=== PATIENT | female | born 1990 | race Caucasian/White ===

== ENCOUNTER 2017-06-22 02:45 | Inpatient (IN) | payer OTHER ==
[2017-06-22] VITALS (14 sets, daily range): BP systolic 103–119; BP diastolic 51–78; PULSE 86–114; RESP 12–14; TEMP 96.9–100.5; O2SAT 100
[~2017-06-22] VITALS: Ht 162.6 cm; Wt 57.3 kg
[2017-06-22] MEDS ORDERED: DIPHTH/TETANUS/ACEL PERTUSSIS (BOOSTER) 0.5 ML VIAL/PFS IM ONE (02:49)
[2017-06-22] MEDS ORDERED: ceFAZolin 2 GM PREMIX 50 ML ONE (02:49)
[2017-06-22 03:10] LABS: I-STAT POTASSIUM 3.1 MMOL/L (3.5-4.9); I-STAT SODIUM 147 MMOL/L (138-146)
[2017-06-22 03:11] LABS: HEMATOCRIT 37.1 % (35.0-46.0); MEAN CELL VOLUME 89.4 FL (80.0-100.0); MEAN CORPUSCULAR HEMOGLOBIN 29.7 PG (27.0-34.0); MEAN CORPUSCULAR HGB CONC 33.2 % (32.0-36.0); PLATELET COUNT 387 TH/MM3 (150-450); RED BLOOD COUNT 4.15 MIL/MM3 (4.00-5.30); RED CELL DISTRIBUTION WIDTH 13.5 % (11.6-17.2); WHITE BLOOD COUNT 22.5 TH/MM3 (4.0-11.0)
[2017-06-22] MEDS ORDERED: IOHEXOL 350 MG/ML 10 ML VIAL (for RAD DIAG) IVCONTRAST ONE (03:15)
[2017-06-22 03:16] LABS: HEMO FLAGS AUTO DIFF
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
[2017-06-22] MEDS ORDERED: ONDANSETRON HCL 4 MG/2 ML VIAL ONE (03:21)
[2017-06-22] MEDS ORDERED: MORPHINE SULFATE 8 MG/ML INJ ONE (03:21)
[2017-06-22 03:24] LABS: APTT (PATIENT) 22.4 SEC (24.3-30.1); INTERNATIONAL NORMALIZED RATIO 1.2 RATIO; PROTHROMBIN TIME - PATIENT 11.8 SEC (9.8-11.6)
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
[2017-06-22 03:41] LABS: BETA HCG QUANT LESS THAN 1 MIU/ML (0-5)
[2017-06-22] MEDS ORDERED: Post-op Orders (for Pharmacy) MISC XX ONE (03:45)
[2017-06-22] MEDS ORDERED: NALOXONE HCL 0.4 MG/ML AMP IV PUSH PRN (03:45)
[2017-06-22] MEDS ORDERED: SODIUM CHLORIDE 0.9% FLUSH 10 ML FLUSH IV FLUSH PRN (03:45)
[2017-06-22] MEDS ORDERED: MORPHINE SULFATE 4 MG/ML INJ IV PUSH PRN (03:45)
[2017-06-22] MEDS ORDERED: GENTAMICIN INJ 60 MG in SODIUM CHLORIDE 0.9% INJ 100 ML IV ONE (03:45)
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
[2017-06-22] MEDS ORDERED: SODIUM CHLORIDE 0.9% FLUSH 10 ML FLUSH IVF PRN (04:00)
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
[2017-06-22 04:36] LABS: POLYS (SEG NEUTROPHILS) 62 % (16-70); SCAN/DIFF FINAL DIFF MANUAL; WBC DIFF SAMPLE 100
[2017-06-22] MEDS ORDERED: metroNIDAZOLE 500 MG INJ 100 ML IV ONE (04:52)
[2017-06-22] MEDS ORDERED: GENTAMICIN 80 MG ONE (04:55)
[2017-06-22] MEDS ORDERED: METRONIDAZOLE 500 MG/100 ML ISONTONIC SOLN IV ONE (05:00)
[2017-06-22] MEDS ORDERED: PIPERACIL-TAZO 3.375 GM PREMIX 50 ML IV ONE (05:08)
[2017-06-22 05:19] LABS: BLOOD GAS BASE EXCESS -5.1 mmol/L (-2-2); BLOOD GAS CARBOXYHEMOGLOBIN 0.9 % (0-4); BLOOD GAS HCO3 20 mmol/L (22-26); BLOOD GAS METHEMOGLOBIN 1.1 % (0-2); BLOOD GAS O2 HGB SATURATION 98 % (90-100); BLOOD GAS OXYGEN CONTENT 14.4 Vol % (12.0-20.0); BLOOD GAS PCO2 37 mmHg (38-42); BLOOD GAS PO2 475 mmHg (61-120); BLOOD GAS TOTAL HGB 9.6 G/DL (12.0-16.0); CRITICAL VALUE NO; TEMP CORR TO 98.6
[2017-06-22 05:20] LABS: OXYGEN DEVICE VENT; STAT NO; VENT SETTINGS OR
[2017-06-22 05:21] LABS: MEAN CELL VOLUME 88.2 FL (80.0-100.0); MEAN CORPUSCULAR HEMOGLOBIN 29.7 PG (27.0-34.0); MEAN CORPUSCULAR HGB CONC 33.7 % (32.0-36.0); PLATELET COUNT 241 TH/MM3 (150-450); RED BLOOD COUNT 2.83 MIL/MM3 (4.00-5.30); RED CELL DISTRIBUTION WIDTH 13.3 % (11.6-17.2); REVIEW FLAG FINAL
[2017-06-22] MEDS ORDERED: PROPOFOL 500 MG/50 ML INJ 50 ML ONE (06:24)
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
[2017-06-22] MEDS ORDERED: ICU - MAGNESIUM SULFATE 4 GM/NS 100 ML IV PRN ×2 (08:15)
[2017-06-22] MEDS ORDERED: POTASSIUM CHLORIDE 25 MEQ EFFERVESCENT TAB PO PRN (08:15)
[2017-06-22] MEDS ORDERED: ICU - D/C ICU ELECTROLYTE ORDERS PRN (08:15)
[2017-06-22] MEDS ORDERED: ICU - MAGNESIUM SULFATE 2 GM/NS 100 ML IV PRN ×2 (08:15)
[2017-06-22] MEDS ORDERED: ICU - MAGNESIUM OXIDE 400 MG TAB PO PRN (08:15)
[2017-06-22] MEDS ORDERED: ICU - POTASSIUM CHLORIDE/AQUEOUS SOLN 40 MEQ/100 ML IVPB IV PRN (08:15)
[2017-06-22] MEDS ORDERED: ICU - POTASSIUM PHOSPHATE MONOBASIC 500 MG TAB PO PRN (08:15)
[2017-06-22] MEDS ORDERED: ICU - POTASSIUM PHOSPHATE 30 MMOL/NS 250 ML IV PRN ×2 (08:15)
[2017-06-22] MEDS ORDERED: ICU - POTASSIUM CHLORIDE/AQUEOUS SOLN 20 MEQ/100 ML IVPB IV PRN (08:15)
[2017-06-22] MEDS ORDERED: ICU - CALL ORDERING PHYSICIAN PRN (08:15)
[2017-06-22] MEDS ORDERED: ICU - SODIUM PHOSPHATE 30 MMOL/NS 250 ML IV PRN ×2 (08:15)
[2017-06-22] MEDS: ACETAMINOPHEN 1000 MG/100 ML 100 ML IV SCH ×3 (08:38→21:38)
[2017-06-22] MEDS: SODIUM CHLORIDE 0.9% FLUSH 10 ML FLUSH IV FLUSH SCH ×2 (08:39→20:32)
[2017-06-22] MEDS: PANTOPRAZOLE SODIUM 40 MG VIAL IV PUSH SCH (08:39)
[2017-06-22] MEDS: SODIUM CHLOR 0.9% 1000 ML INJ 1,000 ML IV SCH ×3 (08:40→23:19)
[2017-06-22] MEDS ORDERED: RESP: ALBUTEROL 2.5 MG/IPRATROPIUM 0.5 MG NEB (PRN) INH (08:45)
[2017-06-22] MEDS: fentaNYL DRIP 250 ML IV PRN ×2 (09:08→22:35)
[2017-06-22] MEDS ORDERED: CHLORHEXIDINE GLUCONATE 0.12% 15 ML CUP ONE (09:51)
[2017-06-22] MEDS ORDERED: ceFAZolin INJ 1,000 MG VIAL ONE (09:51)
[2017-06-22] MEDS ORDERED: DEXAMETHASONE SOD PHOS 4 MG/ML VIAL ONE (09:51)
[2017-06-22] MEDS ORDERED: LIDOCAINE 1%/EPINEPHrine 1:100,000 SOLN 50 ML VIAL ONE (09:51)
[2017-06-22] MEDS ORDERED: BACITRACIN TOP OINT 15 GM TUBE ONE (09:52)
[2017-06-22] MEDS ORDERED: LIDOCAINE 2%/EPINEPHrine PF 1:200,000 20ML SDV ONE (09:52)
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
[2017-06-22] MEDS: PIPERACIL-TAZO 3.375 GM PREMIX 50 ML IV SCH ×3 (11:00→22:33)
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
[2017-06-22] MEDS ORDERED: SUGAMMADEX SODIUM 200 MG/2 ML VIAL IV PUSH ONE ×2 (11:37)
[2017-06-22] MEDS ORDERED: DEXMEDETOMIDINE HCL 200 MCG/2 ML VIAL ONE (11:37)
[2017-06-22] MEDS: RESP: ALBUTEROL 2.5 MG/IPRATROPIUM 0.5 MG NEB (SCH) INH ×4 (11:41→23:22)
[2017-06-22] MEDS ORDERED: MIDAZOLAM HCL 2 MG/2 ML VIAL IV ONE (12:00)
[2017-06-22] MEDS ORDERED: PHENYLEPH/NS 1000 MCG/10 ML SYR IV ONE (12:00)
[2017-06-22] MEDS ORDERED: PROPOFOL 200 MG/20 ML AMP IV ONE (12:00)
[2017-06-22] MEDS ORDERED: SUCCINYLCHOLINE CHLORIDE 100 MG/5 ML SYRINGE IV PUSH ONE (12:00)
[2017-06-22] MEDS ORDERED: ROCURONIUM INJ 50 MG/5 ML SYRINGE IV PUSH ONE (12:00)
[2017-06-22] MEDS ORDERED: LIDOCAINE HCL 1% PF 5 ML SYRINGE OTHER ONE (12:00)
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
--- NOTE | 2017-06-22 14:22 | HHI.PR ---
Immediate Post Op Note Procedure Date: Jun 22, 2017 Pre Op Diagnosis: left mandible body fracture right subcondylar fracture left maxillary alveolus fracture complex lip/chin lacerations 3cm evulsed tooth #10 Post Op Diagnosis: brendon Surgeon: Mundo Rothman Wood Carver(s): Dr. Tres Stovall Procedure: ORIF left mandible body fracture CR right subcondylar fracture Stabilization of left maxillary alveolus fracture closure of complex lip/chin lacerations cancellous bone graft to #10 site exam under anesthesia Findings: multiple chipped teeth Complications: none Specimen(s) removed: none Estimated blood loss: 20 cc Anesthesia: General, Local (2:lidocaine wih 1:200, 000 epi 5 cc) Drains: None Patient to: ISC Patient Condition: Fair (nasally intubated) Date/Time of Procedure: SEE SURGICAL CARE RECORD Mundo Rothman DMD Jun 22, 2017 14:22
[2017-06-22] MEDS: PROPOFOL 1000 MG/100 ML INJ 100 ML IV PRN ×2 (14:47→22:35)
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
--- NOTE | 2017-06-22 15:25 | RADRPT ---
EXAM DATE/TIME: 06/22/2017 14:26 [facility] COMPARISON: No previous studies available for comparison. INDICATIONS : Abdominal pain. MEDICAL HISTORY : None. SURGICAL HISTORY : None. ENCOUNTER: Initial ACUITY: 2 days PAIN SCORE: Non-responsive. LOCATION: Bilateral abdomen. FINDINGS: Surgical suture lines in the right lower quadrant. Surgical drain in the pelvis. Air is seen in the c olon. No dilated loops of bowel. No gross free air or pneumatosis. No abnormal calcifications. Osseou s structures are intact. CONCLUSION: 1. Postsurgical features with nonobstructive bowel gas pattern. Milton Collazo MD on June 22, 2017 at 15:21 Board Certified Radiologist. This report was verified electronically.
[2017-06-22 15:59] LABS: AUTOMATED NEUTROPHIL # 15.3 TH/MM3 (1.8-7.7); HEMATOCRIT 28.3 % (35.0-46.0); HEMO FLAGS DIFF FINAL; LYMPHOCYTE # 0.3 TH/MM3 (1.0-4.8); MEAN CELL VOLUME 89.1 FL (80.0-100.0); MEAN CORPUSCULAR HEMOGLOBIN 30.4 PG (27.0-34.0); MEAN CORPUSCULAR HGB CONC 34.1 % (32.0-36.0); MONO % 2.9 % (0.0-8.0); NEUT % 95.1 % (16.0-70.0); PLATELET COUNT 251 TH/MM3 (150-450); RED BLOOD COUNT 3.17 MIL/MM3 (4.00-5.30); RED CELL DISTRIBUTION WIDTH 13.5 % (11.6-17.2); WHITE BLOOD COUNT 16.1 TH/MM3 (4.0-11.0)
[2017-06-22] MEDS: ceFAZolin 1,000 MG/NS 100 ML IV SCH ×2 (16:13)
[2017-06-22] MEDS: methylPREDNISolone SOD SUCC 125 MG/2 ML VIAL IV SCH ×2 (16:13→20:32)
[2017-06-22] MEDS: CHLORHEXIDINE 0.12% (ORAL KIT) 15 ML CUP MT SCH (20:00)
[2017-06-22] MEDS ORDERED: methylPREDNISolone ACETATE 80 MG/ML VIAL IM ONE (23:00)
[2017-06-23] VITALS (18 sets, daily range): BP systolic 97–135; BP diastolic 56–88; PULSE 85–120; RESP 12–20; TEMP 97.2–100.4; O2SAT 94–100
[2017-06-23] MEDS: ceFAZolin 1,000 MG/NS 100 ML IV SCH ×2 (00:42)
[2017-06-23] MEDS: RESP: ALBUTEROL 2.5 MG/IPRATROPIUM 0.5 MG NEB (SCH) INH ×5 (03:25→20:29)
[2017-06-23 04:07] LABS: AUTOMATED NEUTROPHIL # 14.7 TH/MM3 (1.8-7.7); BASOPHIL % 0.1 % (0.0-2.0); HEMATOCRIT 25.8 % (35.0-46.0); HEMO FLAGS DIFF FINAL; LYMPH % 8.5 % (9.0-44.0); LYMPHOCYTE # 1.4 TH/MM3 (1.0-4.8); MEAN CELL VOLUME 90.6 FL (80.0-100.0); MEAN CORPUSCULAR HEMOGLOBIN 30.8 PG (27.0-34.0); MONO % 3.5 % (0.0-8.0); NEUT % 87.9 % (16.0-70.0); PLATELET COUNT 210 TH/MM3 (150-450); RED BLOOD COUNT 2.85 MIL/MM3 (4.00-5.30); RED CELL DISTRIBUTION WIDTH 13.5 % (11.6-17.2); WHITE BLOOD COUNT 16.7 TH/MM3 (4.0-11.0)
[2017-06-23 04:34] LABS: BLOOD GAS BASE EXCESS -3.4 mmol/L (-2-2); BLOOD GAS CARBOXYHEMOGLOBIN 0.9 % (0-4); BLOOD GAS HCO3 22 mmol/L (22-26); BLOOD GAS METHEMOGLOBIN 0.9 % (0-2); BLOOD GAS O2 HGB SATURATION 98 % (90-100); BLOOD GAS OXYGEN CONTENT 12.7 Vol % (12.0-20.0); BLOOD GAS PCO2 44 mmHg (38-42); BLOOD GAS PO2 199 mmHg (61-120); BLOOD GAS TOTAL HGB 8.9 G/DL (12.0-16.0); CRITICAL VALUE NO; OXYGEN DEVICE VENTILATOR; TEMP CORR TO 98.6
[2017-06-23 04:35] LABS: DRAW SITE LT RADIAL; FIO2 40 %; NUMBER OF ARTERIAL PUNCTURES 1; STAT NO; ULNAR PULSE PRESENT
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
[2017-06-23 04:39] LABS: BICARBONATE 24.3 MEQ/L (21.0-32.0); CALCIUM-PROTEIN CORRECTED 8.4 MG/DL (8.5-10.1); MAGNESIUM 1.9 MG/DL (1.5-2.5); TOTAL BILIRUBIN ADULT 0.2 MG/DL (0.2-1.0)
[2017-06-23] MEDS: PIPERACIL-TAZO 3.375 GM PREMIX 50 ML IV SCH ×3 (05:34→16:07)
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
[2017-06-23] MEDS: PROPOFOL 1000 MG/100 ML INJ 100 ML IV PRN (06:57)
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
[2017-06-23] MEDS: CHLORHEXIDINE 0.12% (ORAL KIT) 15 ML CUP MT SCH ×2 (07:50→19:49)
[2017-06-23] MEDS: SODIUM CHLORIDE 0.9% FLUSH 10 ML FLUSH IV FLUSH SCH ×2 (09:00→19:50)
[2017-06-23] MEDS: PANTOPRAZOLE SODIUM 40 MG VIAL IV PUSH SCH (09:00)
[2017-06-23] MEDS: SODIUM CHLOR 0.9% 1000 ML INJ 1,000 ML IV SCH (09:02)
--- NOTE | 2017-06-23 09:12 | PD.OP ---
cc: Rakan Koch MD Operative Report Date of Surgery: Jun 23, 2017 Preoperative Diagnosis: Displaced right ankle medial malleolus fracture Postoperative Diagnosis: Procedure: Open reduction internal fixation right ankle medial malleolus, stress exam of syndesmosis under anesthesia Anesthesia: Gen. Surgeon: Rakan Koch Crayon Sawyer(s): CHARLI Gonsales PA-C The surgical procedure was assisted by my physician general office assistant. My P.A. presence was necessary throughout this case for the manipulation and positioning of the surgical extremity. My P.A. was assisting me throughout the duration of this procedure. The skill set of a physician general office assistant was medically necessary to complete this procedure. During the surgical case the surgical resident was working at the back table and the physician general office assistant was directly assisting me. Operation and Findings: Implants used :ITS Patient was seen and evaluated preoperatively and found to have a displaced right medial malleolus ankle fracture. Informed consent was obtained after a detailed discussion of risk and benefits of surgery. The operative site was marked. Patient was brought to the OR, placed on the OR table, and given IV sedation and general endotracheal anesthesia. IV antibiotics were given preoperatively. A timeout procedure was performed. The operative leg was prepped with alcohol followed by Hibiclens and draped in the usual sterile fashion. Attention was turned towards the medial malleolus. The medial malleolus supposed through a 3 cm incision. Saphenous vein was retracted. Fracture was visualized. Fracture was cleaned with curettes. Fracture was now reduced and keyed into anatomic alignment. K wires were used to hold provisional fixation. 2 guidepins for the 4.0 cannulated screws were placed in a retrograde fashion across the fracture. Fluoroscopy was used to confirm guidepin placement. Cannulated drill was placed over the guidepin. 2 appropriate length screws were now placed. Good compression was applied. Fluoroscopy confirmed well aligned fracture with well-placed hardware. Next, attention was turned to the syndesmosis. The syndesmosis was stressed. There was no widening of the syndesmosis with external rotation of the ankle. Incisions were thoroughly irrigated. The subcutaneous tissue was closed with 3- 0 Vicryl and the skin was closed with 3-0 nylon. Sterile dressings were applied. A well molded well-padded splint was applied. The patient was transferred to Recovery in stable condition. Needle and sponge counts were correct. Rakan Koch MD Jun 23, 2017 09:12
[2017-06-23] MEDS ORDERED: ACETAMINOPHEN/HYDROcodone 325 MG/7.5 MG TAB PO PRN (09:15)
[2017-06-23] MEDS ORDERED: Post-op Orders (for Pharmacy) MISC XX ONE (09:15)
[2017-06-23] MEDS ORDERED: DO NOT ADM ANY ANTICOAGULANT DRUGS PRN (11:00)
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
[2017-06-23] MEDS ORDERED: VANCOMYCIN HCL 1000 MG VIAL IV ONE (12:00)
[2017-06-23] MEDS ORDERED: ONDANSETRON HCL 4 MG/2 ML VIAL IV PUSH ONE (12:00)
[2017-06-23] MEDS ORDERED: LIDOCAINE HCL 1% PF 5 ML SYRINGE OTHER ONE (12:00)
[2017-06-23] MEDS ORDERED: GENTAMICIN SULFATE 80 MG/2 ML VIAL IRRIGATION ONE (12:00)
[2017-06-23] MEDS ORDERED: DEXMEDETOMIDINE HCL 200 MCG/2 ML VIAL IV ONE (12:00)
[2017-06-23] MEDS ORDERED: SODIUM CHLORIDE 0.9% 50 ML BAG IV ONE (12:00)
[2017-06-23] MEDS ORDERED: SODIUM CHLOR 0.9% 250 ML INJ 250 ML IV ONE (12:00)
[2017-06-23] MEDS ORDERED: PROPOFOL 200 MG/20 ML AMP IV ONE (12:00)
[2017-06-23] MEDS ORDERED: DEXAMETHASONE SOD PHOS 4 MG/ML VIAL IV ONE (12:00)
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
[2017-06-23] MEDS ORDERED: ceFAZolin 2 GM PREMIX 50 ML IV SCH (13:00)
--- NOTE | 2017-06-23 14:19 | RADRPT ---
EXAM DATE/TIME: 06/23/2017 08:57 [facility] COMPARISON: ANKLE RIGHT LIMITED (AP&LAT), June 22, 2017, 2:59. INDICATIONS : Right ankle fracture repair. OR. MEDICAL HISTORY : None. SURGICAL HISTORY : None. ENCOUNTER: Initial ACUITY: 1 day PAIN SCORE: Non-responsive. LOCATION: Right ankle FINDINGS: 2 spot fluoroscopic images obtained in the operating room during a procedure demonstrate placement of 2 partially threaded cannulated screws traversing the medial malleolus. There is now anatomic alignm ent. Ankle mortise is intact. CONCLUSION: Anatomic alignment of the medial malleolus fracture following ORIF. Tres Spence MD on June 23, 2017 at 14:15 Board Certified Radiologist. This report was verified electronically.
--- NOTE | 2017-06-23 15:19 | OTSOAPIP ---
TIME SESSION COMPLETED: AM TREATMENT TIME: 0 MINS. CHART REVIEWED. PT OFF FLOOR FOR SURGERY ON ANKLE THIS MORNING. WILL FOLLOW TOMORROW FOR OT EVALUATION. Therapist: ANAHY BARRETT OT/Jessica Signature on file
[2017-06-23] MEDS: CIPROFLOXACIN/HYDROCORTISONE OTIC 10 ML BTL LEFT EAR SCH (16:02)
[2017-06-23] MEDS: MORPHINE SULFATE 4 MG/ML INJ IV PUSH PRN (16:40)
[2017-06-23] MEDS: ONDANSETRON HCL 4 MG/2 ML VIAL IV PUSH PRN (17:11)
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
[2017-06-24] VITALS (7 sets, daily range): BP systolic 113–135; BP diastolic 58–89; PULSE 103–116; RESP 16–18; TEMP 96.4–98.4; O2SAT 96–100
[2017-06-24] MEDS: SODIUM CHLOR 0.9% 1000 ML INJ 1,000 ML IV SCH ×2 (00:02→08:42)
[2017-06-24] MEDS: PIPERACIL-TAZO 3.375 GM PREMIX 50 ML IV SCH ×2 (00:02→05:25)
[2017-06-24] MEDS: CIPROFLOXACIN/HYDROCORTISONE OTIC 10 ML BTL LEFT EAR SCH ×3 (00:02→21:00)
[2017-06-24] MEDS: RESP: ALBUTEROL 2.5 MG/IPRATROPIUM 0.5 MG NEB (SCH) INH ×2 (01:07→04:38)
[2017-06-24] MEDS: MORPHINE SULFATE 4 MG/ML INJ IV PUSH PRN ×3 (03:49→11:56)
[2017-06-24] MEDS: ONDANSETRON HCL 4 MG/2 ML VIAL IV PUSH PRN ×3 (03:50→15:40)
--- NOTE | 2017-06-24 06:45 | PD.ORT.PN ---
Subjective Subjective Remarks Resting comfortably. Does have concerns about a "clicking" sound over her sternoclavicular joint when taking deep breaths. Objective Vitals Vital Signs Date Time Temp Pulse Resp B/P (MAP) Pulse Ox O2 Delivery O2 Flow Rate FiO2 06/24/17 04:30 97.9 113 16 119/72 (88) 98 06/24/17 01:11 99 06/24/17 00:23 97.6 112 16 113/58 (76) 96 06/23/17 21:45 97.2 116 16 135/76 (95) 100 06/23/17 20:34 94 06/23/17 20:34 95 21 06/23/17 20:00 98.5 120 20 130/81 (97) 100 06/23/17 20:00 120 06/23/17 19:00 100 Room Air 06/23/17 18:00 112 06/23/17 16:00 94 06/23/17 16:00 98.6 100 19 129/88 (102) 98 06/23/17 14:00 94 06/23/17 12:00 99.0 95 12 98 06/23/17 12:00 95 06/23/17 11:05 98 Room Air 06/23/17 10:15 98.6 104 22 144/85 (104) 99 Room Air Arterial Line 06/23/17 10:01 100 Room Air 06/23/17 10:00 121 24 155/93 (113) 100 Room Air Arterial Line 06/23/17 09:46 100 40 06/23/17 09:45 102 18 128/84 (99) 100 Mechanical Ventilator Arterial Line 06/23/17 09:37 99.0 93 11 116/79 (91) 100 Mechanical Ventilator Automatic Cuff 06/23/17 08:30 100 100 06/23/17 08:00 99.6 94 15 107/73 (84) 100 06/23/17 08:00 92 06/23/17 08:00 50 06/23/17 07:25 100 40 06/23/17 07:00 100 Mechanical Ventilator 40 I/O 06/23/17 06/23/17 06/23/17 06/24/17 06/24/17 06/24/17 07:00 15:00 23:00 07:00 15:00 23:00 Intake Total 150 ml 550 ml Output Total 805 ml 140 ml 1075 ml Balance -655 ml 410 ml -1075 ml Intake IV Total 150 ml 100 ml Other 450 ml Output Urine Total 550 ml 120 ml 1000 ml Drainage Total 255 ml 75 ml Estimated Blood Loss 20 ml Result Diagram: 06/23/17 0345 06/23/17 0345 Imaging Last 24 hours Impressions Chest X-Ray 06/23/17 0600 Signed Impressions: Service Date/Time: Friday, June 23, 2017 04:01 - CONCLUSION: 1. Interval intubation. 2. No acute cardiopulmonary disease. 3. The known rib fractures are not visualized. There is no evidence of a pneumothorax. Adrian Henriquez MD Objective Remarks Right lower extremity: Clean dry dressings intact. Short leg splint. Intact sensation distally with active dorsiflexion plantar flexion of toes Assessment & Plan Assessment and Plan Right medial malleolus fracture ORIF POD 1 Nonweightbearing right lower extremity Maintain splint and dressings Walker training Plan for discharge to home and follow-up with Dr. Koch or PA in 2 weeks - orthopedically cleared Adrian Kessler Jr. Jun 24, 2017 06:45
[2017-06-24] MEDS ORDERED: oxyCODONE HCL ORAL CONC 5 MG/0.25 ML SYRINGE PO PRN (07:15)
[2017-06-24] MEDS ORDERED: LACTULOSE SYRUP 20 GM/30 ML CUP PO PRN (07:15)
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
[2017-06-24] MEDS: POLYETHYLENE GLYCOL 17 GM PKG PO SCH (08:42)
[2017-06-24] MEDS: SENNOSIDES SYRUP 8.8 MG/5 ML CUP PO SCH ×2 (09:00→21:00)
[2017-06-24] MEDS: SODIUM CHLORIDE 0.9% FLUSH 10 ML FLUSH IV FLUSH SCH ×2 (09:00→21:00)
[2017-06-24] MEDS: PANTOPRAZOLE SODIUM 40 MG VIAL IV PUSH SCH (09:00)
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
[2017-06-24] MEDS: METHOCARBAMOL IV SCH ×2 (10:08→15:38)
[2017-06-24] MEDS: SODIUM CHLOR 0.9% IV SCH ×2 (10:08→15:38)
[2017-06-24 10:25] LABS: AUTOMATED NEUTROPHIL # 5.5 TH/MM3 (1.8-7.7); BASOPHIL # 0.1 TH/MM3 (0-0.2); BASOPHIL % 1.1 % (0.0-2.0); EOSINOPHIL # 0.2 TH/MM3 (0-0.4); HEMATOCRIT 33.3 % (35.0-46.0); HEMO FLAGS DIFF FINAL; LYMPH % 21.1 % (9.0-44.0); LYMPHOCYTE # 1.7 TH/MM3 (1.0-4.8); MEAN CELL VOLUME 90.6 FL (80.0-100.0); MEAN CORPUSCULAR HEMOGLOBIN 30.6 PG (27.0-34.0); MEAN CORPUSCULAR HGB CONC 33.8 % (32.0-36.0); MONO % 5.5 % (0.0-8.0); NEUT % 70.3 % (16.0-70.0); PLATELET COUNT 186 TH/MM3 (150-450); RED BLOOD COUNT 3.68 MIL/MM3 (4.00-5.30); RED CELL DISTRIBUTION WIDTH 14.8 % (11.6-17.2); WHITE BLOOD COUNT 7.8 TH/MM3 (4.0-11.0)
[2017-06-24 11:08] LABS: ALKALINE PHOSPHATASE 93 U/L (45-117); ALT (GPT) 11 U/L (10-53); ANION GAP 8 MEQ/L (5-15); AST (GOT) 11 U/L (15-37); BICARBONATE 26.6 MEQ/L (21.0-32.0); BLOOD UREA NITROGEN 6 MG/DL (7-18); CHLORIDE 108 MEQ/L (98-107); GLOMERULAR FILTRATION RATE 68 ML/MIN (>89); MAGNESIUM 1.9 MG/DL (1.5-2.5); SODIUM (NA) 143 MEQ/L (136-145); TOTAL BILIRUBIN ADULT 0.3 MG/DL (0.2-1.0)
[2017-06-24 11:19] LABS: POTASSIUM 2.9 MEQ/L (3.5-5.1)
[2017-06-24] MEDS ORDERED: POTASSIUM CHLORIDE 25 MEQ EFFERVESCENT TAB PO ONE (11:30)
[2017-06-24] MEDS ORDERED: POTASSIUM CHLOR 20 MEQ PREMIX 100 ML IV ONE (11:30)
[2017-06-24] MEDS: CHLORHEXIDINE GLUCONATE 0.12% 15 ML CUP SWISH-SPIT SCH ×3 (11:57→18:00)
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
[2017-06-24] MEDS: ENOXAPARIN SODIUM 40 MG/0.4 ML SYRINGE SQ SCH (14:27)
[2017-06-24] MEDS: oxyCODONE HCL ORAL CONC 5 MG/0.25 ML SYRINGE PO PRN ×2 (15:40→20:06)
--- NOTE | 2017-06-24 17:16 | HHI.PR ---
Subjective Remarks POD 2 s/p ORIF/CR B/L mandible fracture; stabilization of maxillary alveolus fracture closure of complex lip/chin lacerations, bone graft #10 socket pt seen this am, mother/family bedside transferred to regular room following commands, talking reports wire causing her discomfort right maxillary lip region Objective Vital Signs Date Time Temp Pulse Resp B/P (MAP) Pulse Ox O2 Delivery O2 Flow Rate FiO2 06/24/17 16:00 97.2 110 18 135/89 (104) 100 06/24/17 12:00 96.9 103 18 121/88 (99) 100 06/24/17 08:00 96.4 116 18 128/79 (95) 100 06/24/17 04:30 97.9 113 16 119/72 (88) 98 06/24/17 01:11 99 06/24/17 00:23 97.6 112 16 113/58 (76) 96 06/23/17 21:45 97.2 116 16 135/76 (95) 100 06/23/17 20:34 94 06/23/17 20:34 95 21 06/23/17 20:00 98.5 120 20 130/81 (97) 100 06/23/17 20:00 120 06/23/17 19:00 100 Room Air 06/23/17 18:00 112 I/O 06/23/17 06/23/17 06/23/17 06/24/17 06/24/17 06/24/17 07:00 15:00 23:00 07:00 15:00 23:00 Intake Total 150 ml 550 ml 0 ml 240 ml Output Total 805 ml 140 ml 1075 ml 830 ml 50 ml Balance -655 ml 410 ml -1075 ml -830 ml 190 ml Intake Oral 0 ml 240 ml IV Total 150 ml 100 ml Other 450 ml Output Urine Total 550 ml 120 ml 1000 ml 800 ml Drainage Total 255 ml 75 ml 30 ml 50 ml Estimated Blood Loss 20 ml # Voids 5 # Bowel Movements 0 0 Result Diagram: 06/24/17 1000 06/24/17 1000 Objective Remarks mild facial edema chin dressing in place + sensation to lower lip, especially left side intraorally, tissues pink/well perfused all wound margins well approximated, sutures intact, hemostatic arch bars/wires in place, hemostatic, bite in occlusion, #10 site stable wire cutters noted in room wire causing irritation right maxillary lip Assessment and Plan Assessment and Plan POD 2 s/p ORIF/CR B/L mandible fracture; stabilization of maxillary alveolus fracture closure of complex lip/chin lacerations, bone graft #10 socket progressing well from oms standpoint continue supportive care wire cutters with pt. placed ortho wax to right maxillary wires ohi reinforced Mundo Rothman DMD Jun 24, 2017 17:16
[2017-06-25] VITALS (8 sets, daily range): BP systolic 121–134; BP diastolic 76–87; PULSE 90–97; RESP 16–18; TEMP 96.2–98.2; O2SAT 98–99
[2017-06-25] MEDS: METHOCARBAMOL IV SCH ×3 (02:01→17:26)
[2017-06-25] MEDS: SODIUM CHLOR 0.9% IV SCH ×3 (02:01→17:26)
[2017-06-25 05:35] LABS: AUTOMATED NEUTROPHIL # 9.3 TH/MM3 (1.8-7.7); BASOPHIL % 0.2 % (0.0-2.0); EOSINOPHIL % 0.1 % (0.0-4.0); HEMATOCRIT 26.8 % (35.0-46.0); HEMO FLAGS DIFF FINAL; LYMPH % 13.2 % (9.0-44.0); LYMPHOCYTE # 1.5 TH/MM3 (1.0-4.8); MEAN CELL VOLUME 88.7 FL (80.0-100.0); MEAN CORPUSCULAR HEMOGLOBIN 29.9 PG (27.0-34.0); MEAN CORPUSCULAR HGB CONC 33.7 % (32.0-36.0); MONO % 4.7 % (0.0-8.0); NEUT % 81.8 % (16.0-70.0); PLATELET COUNT 223 TH/MM3 (150-450); RED BLOOD COUNT 3.03 MIL/MM3 (4.00-5.30); RED CELL DISTRIBUTION WIDTH 13.4 % (11.6-17.2); WHITE BLOOD COUNT 11.4 TH/MM3 (4.0-11.0)
[2017-06-25] MEDS: oxyCODONE HCL ORAL CONC 5 MG/0.25 ML SYRINGE PO PRN ×4 (05:58→21:39)
[2017-06-25 06:10] LABS: ALKALINE PHOSPHATASE 65 U/L (45-117); ALT (GPT) 19 U/L (10-53); ANION GAP 8 MEQ/L (5-15); AST (GOT) 21 U/L (15-37); BICARBONATE 26.8 MEQ/L (21.0-32.0); BLOOD UREA NITROGEN 6 MG/DL (7-18); CHLORIDE 103 MEQ/L (98-107); GLOMERULAR FILTRATION RATE 261 ML/MIN (>89); POTASSIUM 3.6 MEQ/L (3.5-5.1); SODIUM (NA) 138 MEQ/L (136-145); TOTAL BILIRUBIN ADULT 0.6 MG/DL (0.2-1.0)
--- NOTE | 2017-06-25 07:07 | PD.ORT.PN ---
Subjective Subjective Remarks POD 2 s/p ORIF right medial malleolus doing well. reports pain but controlled Objective Vitals Vital Signs Date Time Temp Pulse Resp B/P (MAP) Pulse Ox O2 Delivery O2 Flow Rate FiO2 06/25/17 04:00 98.2 92 17 128/79 (95) 98 06/25/17 00:00 97.9 95 17 129/79 (96) 98 06/24/17 20:00 98.4 109 17 132/74 (93) 99 06/24/17 16:00 97.2 110 18 135/89 (104) 100 06/24/17 12:00 96.9 103 18 121/88 (99) 100 06/24/17 08:00 96.4 116 18 128/79 (95) 100 I/O 06/24/17 06/24/17 06/24/17 06/25/17 06/25/17 06/25/17 07:00 15:00 23:00 07:00 15:00 23:00 Intake Total 0 ml 240 ml 420 ml 240 ml Output Total 830 ml 50 ml Balance -830 ml 190 ml 420 ml 240 ml Intake Oral 0 ml 240 ml 420 ml 240 ml Output Urine Total 800 ml Drainage Total 30 ml 50 ml # Voids 5 2 2 # Bowel Movements 0 0 0 0 Result Diagram: 06/25/17 0515 06/25/17 0515 Imaging Last 24 hours Impressions Chest X-Ray 06/23/17 0600 Signed Impressions: Service Date/Time: Friday, June 23, 2017 04:01 - CONCLUSION: 1. Interval intubation. 2. No acute cardiopulmonary disease. 3. The known rib fractures are not visualized. There is no evidence of a pneumothorax. Adrian Henriquez MD Objective Remarks Right lower extremity: Clean dry dressings intact. Short leg splint. Intact sensation distally with active dorsiflexion plantar flexion of toes Assessment & Plan Assessment and Plan 1) Right medial malleolus fracture ORIF - POD 2 Nonweightbearing right lower extremity Maintain splint and dressings Walker training Plan for discharge to home and follow-up with Dr. Koch or PA in 2 weeks - orthopedically cleared Edmund Gomes/Pharmacist Helper RADHA Jun 25, 2017 07:07
[2017-06-25] MEDS ORDERED: WALKER/ADULT/FO1 MIS (07:08)
[2017-06-25] MEDS: SODIUM CHLORIDE 0.9% FLUSH 10 ML FLUSH IV FLUSH SCH ×2 (09:00→21:38)
[2017-06-25] MEDS: CIPROFLOXACIN/HYDROCORTISONE OTIC 10 ML BTL LEFT EAR SCH ×2 (09:00→21:33)
[2017-06-25] MEDS: SENNOSIDES SYRUP 8.8 MG/5 ML CUP PO SCH ×2 (09:14→21:40)
[2017-06-25] MEDS: PANTOPRAZOLE SODIUM 40 MG VIAL IV PUSH SCH (09:14)
[2017-06-25] MEDS: POLYETHYLENE GLYCOL 17 GM PKG PO SCH (09:14)
[2017-06-25] MEDS: CHLORHEXIDINE GLUCONATE 0.12% 15 ML CUP SWISH-SPIT SCH ×3 (09:14→17:26)
[2017-06-25] MEDS: SODIUM CHLOR 0.9% 1000 ML INJ 1,000 ML IV SCH (09:22)
[2017-06-25] MEDS: ENOXAPARIN SODIUM 40 MG/0.4 ML SYRINGE SQ SCH (12:32)
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
--- NOTE | 2017-06-25 12:53 | HHI.PR ---
Subjective Remarks POD 3 s/p ORIF/CR B/L mandible fracture; stabilization of maxillary alveolus fracture closure of complex lip/chin lacerations, bone graft #10 socket pt seen this am, mother/family bedside following commands, talking no complaints Objective Vital Signs Date Time Temp Pulse Resp B/P (MAP) Pulse Ox O2 Delivery O2 Flow Rate FiO2 06/25/17 12:00 97.7 93 17 134/87 (103) 99 06/25/17 08:00 96.2 90 18 122/77 (92) 99 06/25/17 04:00 98.2 92 17 128/79 (95) 98 06/25/17 00:00 97.9 95 17 129/79 (96) 98 06/24/17 20:00 98.4 109 17 132/74 (93) 99 06/24/17 16:00 97.2 110 18 135/89 (104) 100 I/O 06/24/17 06/24/17 06/24/17 06/25/17 06/25/17 06/25/17 07:00 15:00 23:00 07:00 15:00 23:00 Intake Total 0 ml 240 ml 420 ml 240 ml Output Total 830 ml 50 ml 15 ml 20 ml Balance -830 ml 190 ml 405 ml 220 ml Intake Oral 0 ml 240 ml 420 ml 240 ml Output Urine Total 800 ml Drainage Total 30 ml 50 ml 15 ml 20 ml # Voids 5 2 2 # Bowel Movements 0 0 0 0 Result Diagram: 06/25/17 0515 06/25/1715 Objective Remarks mild facial/ lower left lip edema chin dressing in place + sensation to lower lip, especially left side intraorally, tissues pink/well perfused all wound margins well approximated, sutures intact, hemostatic arch bars/wires in place, hemostatic, bite in occlusion, #10 site stable wire cutters noted in room Assessment and Plan Assessment and Plan POD 3 s/p ORIF/CR B/L mandible fracture; stabilization of maxillary alveolus fracture closure of complex lip/chin lacerations, bone graft #10 socket progressing well from oms standpoint ok to d/c from OMS standpoint f/up dr. rothman 1 week - [phone] send pt with wire cutters with pt.- wire cutters with at all times keep chin dressing on x 24 hours ohi reinforced Mundo Rothman DMD Jun 25, 2017 12:53
[2017-06-25] MEDS: ONDANSETRON HCL 4 MG/2 ML VIAL IV PUSH PRN ×2 (14:42→21:38)
[2017-06-25] MEDS: MAGNESIUM HYDROXIDE SUSP 30 ML CUP PO SCH (21:39)
[2017-06-25] MEDS ORDERED: MAGN30S PO (22:08)
[2017-06-25] MEDS ORDERED: SENNSYP PO (22:08)
[2017-06-25] MEDS: LACTULOSE SYRUP 20 GM/30 ML CUP PO SCH (22:15)
[2017-06-26] VITALS (9 sets, daily range): BP systolic 116–128; BP diastolic 79–85; PULSE 90–109; RESP 16–18; TEMP 96.7–98.3; O2SAT 98–100
[2017-06-26] MEDS: METHOCARBAMOL IV SCH ×3 (00:40→17:00)
[2017-06-26] MEDS: SODIUM CHLOR 0.9% IV SCH ×3 (00:40→17:00)
[2017-06-26] MEDS: SODIUM CHLOR 0.9% 1000 ML INJ 1,000 ML IV SCH ×2 (02:02→18:42)
[2017-06-26] MEDS: ONDANSETRON HCL 4 MG/2 ML VIAL IV PUSH PRN ×3 (05:46→21:46)
[2017-06-26] MEDS: oxyCODONE HCL ORAL CONC 5 MG/0.25 ML SYRINGE PO PRN ×4 (05:47→21:46)
[2017-06-26 06:12] LABS: AUTOMATED NEUTROPHIL # 6.6 TH/MM3 (1.8-7.7); BASOPHIL % 0.2 % (0.0-2.0); EOSINOPHIL # 0.1 TH/MM3 (0-0.4); EOSINOPHIL % 0.6 % (0.0-4.0); HEMATOCRIT 29.9 % (35.0-46.0); HEMO FLAGS DIFF FINAL; LYMPH % 15.3 % (9.0-44.0); LYMPHOCYTE # 1.3 TH/MM3 (1.0-4.8); MEAN CELL VOLUME 86.6 FL (80.0-100.0); MEAN CORPUSCULAR HEMOGLOBIN 30.4 PG (27.0-34.0); MEAN CORPUSCULAR HGB CONC 35.1 % (32.0-36.0); MONO % 6.5 % (0.0-8.0); NEUT % 77.4 % (16.0-70.0); PLATELET COUNT 294 TH/MM3 (150-450); RED BLOOD COUNT 3.45 MIL/MM3 (4.00-5.30); WHITE BLOOD COUNT 8.5 TH/MM3 (4.0-11.0)
[2017-06-26 06:27] LABS: BICARBONATE 24.5 MEQ/L (21.0-32.0); POTASSIUM 3.4 MEQ/L (3.5-5.1)
[2017-06-26] MEDS ORDERED: POTASSIUM CHLORIDE 20 MEQ CONTROLLED RELEASE TAB PO ONE (08:00)
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
[2017-06-26] MEDS: PANTOPRAZOLE SODIUM 40 MG VIAL IV PUSH SCH (08:39)
[2017-06-26] MEDS: POLYETHYLENE GLYCOL 17 GM PKG PO SCH (08:39)
[2017-06-26] MEDS: SENNOSIDES SYRUP 8.8 MG/5 ML CUP PO SCH ×2 (08:39→21:58)
[2017-06-26] MEDS: LACTULOSE SYRUP 20 GM/30 ML CUP PO SCH (08:39)
[2017-06-26] MEDS: CHLORHEXIDINE GLUCONATE 0.12% 15 ML CUP SWISH-SPIT SCH ×3 (08:39→18:00)
[2017-06-26] MEDS: SODIUM CHLORIDE 0.9% FLUSH 10 ML FLUSH IV FLUSH SCH ×2 (08:40→21:53)
[2017-06-26] MEDS: CIPROFLOXACIN/HYDROCORTISONE OTIC 10 ML BTL LEFT EAR SCH ×2 (08:50→21:52)
[2017-06-26] MEDS ORDERED: POTASSIUM CHLORIDE 25 MEQ EFFERVESCENT TAB PO ONE (09:00)
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
[2017-06-26] MEDS: ENOXAPARIN SODIUM 40 MG/0.4 ML SYRINGE SQ SCH (13:00)
[2017-06-26] MEDS ORDERED: Chlorhexidine 0.12% Liq SWISH-SPIT (14:43)
[2017-06-26] MEDS ORDERED: oxyCODONE LIQ PO (14:43)
[2017-06-26] MEDS: CLINDAMYCIN PALMITATE SOLN 75 MG/5 ML 100 ML BTL PO SCH ×2 (15:32→21:46)
[2017-06-26] MEDS: MAGNESIUM HYDROXIDE SUSP 30 ML CUP PO SCH (21:58)
[2017-06-27] VITALS: BP 112/81; PULSE 94; RESP 16; TEMP 96.6; O2SAT 99
[2017-06-27 00:44] VITALS: PULSE 93
[2017-06-27] MEDS: SODIUM CHLOR 0.9% IV SCH (00:44)
[2017-06-27] MEDS: METHOCARBAMOL IV SCH (00:44)
[2017-06-27 03:57] VITALS: PULSE 93
[2017-06-27] MEDS: ONDANSETRON HCL 4 MG/2 ML VIAL IV PUSH PRN ×2 (05:40→12:23)
[2017-06-27] MEDS: oxyCODONE HCL ORAL CONC 5 MG/0.25 ML SYRINGE PO PRN ×2 (05:45→12:24)
[2017-06-27] MEDS: CLINDAMYCIN PALMITATE SOLN 75 MG/5 ML 100 ML BTL PO SCH ×2 (05:45→12:33)
--- NOTE | 2017-06-27 06:48 | PD.ORT.PN ---
Subjective Subjective Remarks Resting comfortably with no new complaints. Anticipating discharge to home today Objective Vitals Vital Signs Date Time Temp Pulse Resp B/P (MAP) Pulse Ox O2 Delivery O2 Flow Rate FiO2 06/27/17 03:57 93 06/27/17 00:44 93 06/27/17 00:00 96.6 94 16 112/81 (91) 99 06/26/17 20:00 98.1 109 17 117/80 (92) 98 06/26/17 19:42 96 06/26/17 16:00 97.7 102 18 123/80 (94) 100 06/26/17 12:00 96.7 104 18 116/83 (94) 98 06/26/17 08:35 Room Air 06/26/17 08:35 108 06/26/17 08:00 96.7 105 18 128/79 (95) 98 I/O 06/26/17 06/26/17 06/26/17 06/27/17 06/27/17 06/27/17 07:00 15:00 23:00 07:00 15:00 23:00 Intake Total 1738 ml 480 ml 600 ml 610 ml Balance 1738 ml 480 ml 600 ml 610 ml Intake Oral 480 ml 600 ml 360 ml IV Total 1738 ml 250 ml # Voids 2 2 2 # Bowel Movements 0 Result Diagram: 06/26/17 0552 06/26/17 0552 Imaging Last 24 hours Impressions Chest X-Ray 06/23/17 0600 Signed Impressions: Service Date/Time: Friday, June 23, 2017 04:01 - CONCLUSION: 1. Interval intubation. 2. No acute cardiopulmonary disease. 3. The known rib fractures are not visualized. There is no evidence of a pneumothorax. Adrian Henriquez MD Objective Remarks Right lower extremity: Clean dry dressings intact. Short leg splint. Intact sensation distally with active dorsiflexion plantar flexion of toes Assessment & Plan Assessment and Plan 1) Right medial malleolus fracture ORIF - POD 4 Nonweightbearing right lower extremity Maintain splint and dressings Walker training Plan for discharge to home and follow-up with Dr. Koch or PA in 2 weeks - orthopedically cleared Adrian Kessler Jr. Jun 27, 2017 06:48
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
[2017-06-27 08:00] VITALS: BP 108/76; PULSE 98; RESP 19; TEMP 98.5; O2SAT 100
[2017-06-27] MEDS: POLYETHYLENE GLYCOL 17 GM PKG PO SCH (09:00)
[2017-06-27] MEDS: SENNOSIDES SYRUP 8.8 MG/5 ML CUP PO SCH (09:00)
[2017-06-27] MEDS: LACTULOSE SYRUP 20 GM/30 ML CUP PO SCH (09:00)
[2017-06-27] MEDS: PANTOPRAZOLE SODIUM 40 MG VIAL IV PUSH SCH (10:33)
[2017-06-27] MEDS: CHLORHEXIDINE GLUCONATE 0.12% 15 ML CUP SWISH-SPIT SCH ×2 (10:33→12:33)
[2017-06-27] MEDS: SODIUM CHLORIDE 0.9% FLUSH 10 ML FLUSH IV FLUSH SCH (10:34)
[2017-06-27] MEDS: CIPROFLOXACIN/HYDROCORTISONE OTIC 10 ML BTL LEFT EAR SCH (10:35)
[2017-06-27] MEDS: SODIUM CHLOR 0.9% 1000 ML INJ 1,000 ML IV SCH (11:22)
[2017-06-27] MEDS ORDERED: ACET5DRO2 PO (11:53)
[2017-06-27] MEDS ORDERED: IBUP0.77 PO (11:53)
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
[2017-06-27 12:00] VITALS: BP 110/77; PULSE 103; RESP 19; TEMP 96.7; O2SAT 100
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
[2017-06-27] MEDS: ENOXAPARIN SODIUM 40 MG/0.4 ML SYRINGE SQ SCH (12:30)
== END 2017-06-27 14:34 | disposition home health service (06) | DRG 958 ==
LOC: NEPI 02:45 → NEDA 03:35 → EEVIPCON 03:35 → EDBD 03:35 → N03A 06:17 → N06B 06-23 21:23
PROVIDERS: ADMIT Surgery; ATTEND Surgery
PROC: 0NSTXZZ Reposition Right Mandible, External Approach (ICD-10-PCS; 2017-06-22)
PROC: 0HQ1XZZ Repair Face Skin, External Approach (ICD-10-PCS; 2017-06-22)
PROC: 0CQ1XZZ Repair Lower Lip, External Approach (ICD-10-PCS; 2017-06-22)
PROC: 0NS Head and Facial Bones, Reposition (ICD-10-PCS; 2017-06-22)
PROC: 5A1945Z Respiratory Ventilation, 24-96 Consecutive Hours (ICD-10-PCS; 2017-06-22)
PROC: 0DBF0ZZ Excision of Right Large Intestine, Open Approach (ICD-10-PCS; principal; 2017-06-22 04:18)
PROC: 0NSV04Z Reposition Left Mandible with Internal Fixation Device, Open Approach (ICD-10-PCS; 2017-06-22 10:42)
PROC: 0QSG04Z Reposition Right Tibia with Internal Fixation Device, Open Approach (ICD-10-PCS; 2017-06-23)
DX: S36.590A Other injury of ascending [right] colon, initial encounter (principal); S02.602A Fracture of unspecified part of body of left mandible, initial encounter for closed fracture; S27.322A Contusion of lung, bilateral, initial encounter; S22.43XA Multiple fractures of ribs, bilateral, initial encounter for closed fracture; S02.42XA Fracture of alveolus of maxilla, initial encounter for closed fracture; S36.030A Superficial (capsular) laceration of spleen, initial encounter; S22.059A Unspecified fracture of T5-T6 vertebra, initial encounter for closed fracture; S36.893A Laceration of other intra-abdominal organs, initial encounter; S06.0X9A Concussion with loss of consciousness of unspecified duration, initial encounter; S02.621A Fracture of subcondylar process of right mandible, initial encounter for closed fracture; S02.40DA Maxillary fracture, left side, initial encounter for closed fracture; S22.069A Unspecified fracture of T7-T8 vertebra, initial encounter for closed fracture; S36.538A Laceration of other part of colon, initial encounter; S82.51XA Displaced fracture of medial malleolus of right tibia, initial encounter for closed fracture; S01.81XA Laceration without foreign body of other part of head, initial encounter; H92.22 Otorrhagia, left ear; R40.2412 Glasgow coma scale score 13-15, at arrival to emergency department; D72.829 Elevated white blood cell count, unspecified; R31.9 Hematuria, unspecified; S01.511A Laceration without foreign body of lip, initial encounter; S03.2XXA Dislocation of tooth, initial encounter; S02.5XXA Fracture of tooth (traumatic), initial encounter for closed fracture; H73.899 Other specified disorders of tympanic membrane, unspecified ear; V47.6XXA Car passenger injured in collision with fixed or stationary object in traffic accident, initial encounter; Y92.410 Unspecified street and highway as the place of occurrence of the external cause
CPT/HCPCS: 36600; 70450; 70480; 70486; 71010; 71260; 72125; 72128; 72131; 72170; 73600; 74000; 74177; 76000; 80048; 80053; 80307; 82435; 82565; 82805; 82947; 83735; 84100; 84132; 84295; 84520; 84702; 85007; 85025; 85027; 85610; 85730; 86850; 86900; 86901; 86920; 87641; 88307; 88309; 90715; 94002; 94003; 94150; 94640; 94664; C1713; C9113; J0131; J0330; J0690; J1040; J1100; J1580; J1650; J2250; J2270; J2370; J2405; J2543; J2800; J2930; J3010; J3370; J3480; J7030; J7050; Q9967